=== PATIENT | female | born 1940 | race Caucasian/White ===

== ENCOUNTER 2020-03-24 15:03 | Outpatient (CLI) | payer MEDICARE, BC, SELFPAY ==
[2020-03-24 15:50] LABS: Anion Gap 8.1 mmol/L (3-11); BUN 30 mg/dL (7-18); CO2 26.9 mmol/L (21.0-32.0); CREATININE 1.25 mg/dL (0.55-1.02); Calcium 9.1 mg/dL (8.5-10.1); Chloride 102 mmol/L (98-107); Estimated GFR 41.56 (mL/min/1.73m2); Glucose 137 mg/dL (74-106); Potassium 4.1 mmol/L (3.5-5.1); Sodium 137 mmol/L (136-145)
== END 2020-03-24 15:23 ==
PROVIDERS: PCP Family Medicine; Visit Provider Nurse Practitioner Adult Health
DX: C25.0 Malignant neoplasm of head of pancreas (principal)
CPT/HCPCS: 36415; 80048

== ENCOUNTER 2020-04-04 02:48 | Outpatient (RCR) | payer MEDICARE, BC, SELFPAY ==
[2020-03-21] MEDS: Heparin 500 UNITS/5 ML SYRINGE IV (12:25)
[2020-03-21] MEDS: Normal Saline Flush 10 ML SYR IVP (12:25)
[2020-03-21 12:52] LABS: Abs Immature Grans 0.02 k/cumm (0.0-0.09); Absolute Basophil Count 0.03 k/cumm (0.0-0.2); Absolute Eosinophil Count 0.47 k/cumm (0.0-0.7); Absolute Lymphocyte Count 1.88 k/cumm (1.2-3.4); Absolute Monocyte Count 0.83 k/cumm (0.11-0.7); Absolute Neutrophil Count 5.18 k/cumm (1.2-6.7); Basophils % 0.4; Eosinophils % 5.6; HCT 33.7 % (36.0-46.0); HGB 10.5 g/dL (12.0-15.5); Immature Grans % 0.2 %; Lymphocytes % 22.4; Mean Corp. HGB Concentration 31.2 g/dL (32.0-36.0); Mean Corpuscular Hemoglobin 31.5 pg (27.0-33.0); Mean Corpuscular Volume 101.2 fL (80-95); Mean Platelet Volume 11.1 fL (8.0-11.0); Monocytes % 9.9; Neutrophils % 61.5; Platelet Count 210 x1000/uL (130-400); RBC 3.33 m/cumm (4.00-5.20); RBC Distribution Width 15.4 % (11.7-14.6); White Blood Cell Count 8.41 k/cumm (4.4-10.8)
[2020-03-21 13:07] LABS: ALT 21 U/L (14-59); AST 16 U/L (15-37); Albumin 2.9 g/dL (3.4-5.0); Alkaline Phosphatase 75 U/L (46-116); Anion Gap 5.4 mmol/L (3-11); BUN 34 mg/dL (7-18); Bilirubin, Total 0.3 mg/dL (0.2-1.0); CO2 29.6 mmol/L (21.0-32.0); CREATININE 1.66 mg/dL (0.55-1.02); Calcium 8.9 mg/dL (8.5-10.1); Chloride 101 mmol/L (98-107); Estimated GFR 29.96 (mL/min/1.73m2); Glucose 259 mg/dL (74-106); Potassium 4.7 mmol/L (3.5-5.1); Sodium 136 mmol/L (136-145); Total Protein 7.1 g/dL (6.4-8.2)
[2020-03-24 11:36] LABS: CA 19-9 10 U/mL (<35)
[2020-04-04 12:50] LABS: Abs Immature Grans 0.02 k/cumm (0.0-0.09); Absolute Basophil Count 0.01 k/cumm (0.0-0.2); Absolute Eosinophil Count 0.49 k/cumm (0.0-0.7); Absolute Lymphocyte Count 0.86 k/cumm (1.2-3.4); Absolute Monocyte Count 0.76 k/cumm (0.11-0.7); Absolute Neutrophil Count 4.18 k/cumm (1.2-6.7); Basophils % 0.2; Eosinophils % 7.8; HGB 10.6 g/dL (12.0-15.5); Immature Grans % 0.3 %; Lymphocytes % 13.6; Mean Corp. HGB Concentration 31.2 g/dL (32.0-36.0); Mean Corpuscular Hemoglobin 31.3 pg (27.0-33.0); Mean Corpuscular Volume 100.3 fL (80-95); Mean Platelet Volume 10.8 fL (8.0-11.0); Neutrophils % 66.1; Platelet Count 250 x1000/uL (130-400); RBC 3.39 m/cumm (4.00-5.20); White Blood Cell Count 6.32 k/cumm (4.4-10.8)
[2020-04-04 13:02] LABS: ALT 20 U/L (14-59); AST 18 U/L (15-37); Alkaline Phosphatase 59 U/L (46-116); Anion Gap 5.6 mmol/L (3-11); BUN 25 mg/dL (7-18); Bilirubin, Total 0.3 mg/dL (0.2-1.0); CO2 29.4 mmol/L (21.0-32.0); CREATININE 1.33 mg/dL (0.55-1.02); Calcium 8.5 mg/dL (8.5-10.1); Chloride 96 mmol/L (98-107); Estimated GFR 38.69 (mL/min/1.73m2); Glucose 232 mg/dL (74-106); Potassium 4.3 mmol/L (3.5-5.1); Sodium 131 mmol/L (136-145); Total Protein 6.8 g/dL (6.4-8.2)
[2020-04-04] MEDS: Normal Saline Flush 10 ML SYR IVP (13:20)
== END 2020-04-06 23:59 | disposition home or self-care (01) ==
LOC: INF 02:48
PROVIDERS: PCP Family Medicine; Visit Provider Internal Medicine Hematology & Oncology
DX: C25.0 Malignant neoplasm of head of pancreas (principal); Z45.2 Encounter for adjustment and management of vascular access device
CPT/HCPCS: 36591; 80053; 85025; 86301

== ENCOUNTER 2020-05-02 04:10 | Outpatient (RCR) | payer MEDICARE, BC, SELFPAY ==
[2020-04-11] MEDS: Normal Saline Flush 10 ML SYR IVP (13:05)
[2020-04-11] MEDS: Heparin 500 UNITS/5 ML SYRINGE IV (13:06)
[2020-04-11 13:08] LABS: Abs Immature Grans 0.01 k/cumm (0.0-0.09); Absolute Basophil Count 0.01 k/cumm (0.0-0.2); Absolute Eosinophil Count 0.51 k/cumm (0.0-0.7); Absolute Lymphocyte Count 0.55 k/cumm (1.2-3.4); Absolute Monocyte Count 0.74 k/cumm (0.11-0.7); Absolute Neutrophil Count 3.46 k/cumm (1.2-6.7); Basophils % 0.2; Eosinophils % 9.7; HCT 34.4 % (36.0-46.0); Immature Grans % 0.2 %; Lymphocytes % 10.4; Mean Corpuscular Hemoglobin 31.9 pg (27.0-33.0); Mean Corpuscular Volume 99.7 fL (80-95); Mean Platelet Volume 10.5 fL (8.0-11.0); Neutrophils % 65.5; Platelet Count 189 x1000/uL (130-400); RBC 3.45 m/cumm (4.00-5.20); RBC Distribution Width 14.9 % (11.7-14.6); White Blood Cell Count 5.28 k/cumm (4.4-10.8)
[2020-04-11 13:23] LABS: ALT 34 U/L (14-59); AST 27 U/L (15-37); Albumin 2.9 g/dL (3.4-5.0); Alkaline Phosphatase 69 U/L (46-116); Anion Gap 3.2 mmol/L (3-11); BUN 21 mg/dL (7-18); Bilirubin, Total 0.2 mg/dL (0.2-1.0); CO2 29.8 mmol/L (21.0-32.0); CREATININE 1.17 mg/dL (0.55-1.02); Calcium 8.7 mg/dL (8.5-10.1); Chloride 102 mmol/L (98-107); Estimated GFR 44.85 (mL/min/1.73m2); Glucose 201 mg/dL (74-106); Potassium 4.4 mmol/L (3.5-5.1); Sodium 135 mmol/L (136-145); Total Protein 6.8 g/dL (6.4-8.2)
[2020-04-18] MEDS: Normal Saline Flush 10 ML SYR IVP (13:00)
[2020-04-18] MEDS: Heparin 500 UNITS/5 ML SYRINGE IV (13:00)
[2020-04-18 13:16] LABS: Abs Immature Grans 0.01 k/cumm (0.0-0.09); Absolute Basophil Count 0.01 k/cumm (0.0-0.2); Absolute Eosinophil Count 0.68 k/cumm (0.0-0.7); Absolute Lymphocyte Count 0.41 k/cumm (1.2-3.4); Absolute Monocyte Count 0.88 k/cumm (0.11-0.7); Absolute Neutrophil Count 3.91 k/cumm (1.2-6.7); Basophils % 0.2; Eosinophils % 11.5; HCT 34.4 % (36.0-46.0); HGB 11.1 g/dL (12.0-15.5); Immature Grans % 0.2 %; Lymphocytes % 6.9; Mean Corp. HGB Concentration 32.3 g/dL (32.0-36.0); Mean Corpuscular Hemoglobin 32.3 pg (27.0-33.0); Mean Platelet Volume 10.7 fL (8.0-11.0); Monocytes % 14.9; Neutrophils % 66.3; Platelet Count 154 x1000/uL (130-400); RBC 3.44 m/cumm (4.00-5.20); RBC Distribution Width 15.2 % (11.7-14.6)
[2020-04-18 13:34] LABS: ALT 25 U/L (14-59); AST 20 U/L (15-37); Albumin 2.9 g/dL (3.4-5.0); Alkaline Phosphatase 69 U/L (46-116); Anion Gap 7.1 mmol/L (3-11); BUN 25 mg/dL (7-18); Bilirubin, Total 0.3 mg/dL (0.2-1.0); CO2 28.9 mmol/L (21.0-32.0); CREATININE 1.25 mg/dL (0.55-1.02); Calcium 8.6 mg/dL (8.5-10.1); Chloride 100 mmol/L (98-107); Estimated GFR 41.56 (mL/min/1.73m2); Glucose 182 mg/dL (74-106); Potassium 4.4 mmol/L (3.5-5.1); Sodium 136 mmol/L (136-145); Total Protein 6.8 g/dL (6.4-8.2)
[2020-04-21 11:44] LABS: CA 19-9 12 U/mL (<35)
[2020-04-25] MEDS: Heparin 500 UNITS/5 ML SYRINGE IV (12:04)
[2020-04-25] MEDS: Normal Saline Flush 10 ML SYR IVP (12:04)
[2020-04-25 12:07] LABS: Abs Immature Grans 0.01 k/cumm (0.0-0.09); Absolute Basophil Count 0.01 k/cumm (0.0-0.2); Absolute Eosinophil Count 0.93 k/cumm (0.0-0.7); Absolute Monocyte Count 0.67 k/cumm (0.11-0.7); Absolute Neutrophil Count 2.97 k/cumm (1.2-6.7); Basophils % 0.2; HCT 33.5 % (36.0-46.0); HGB 10.8 g/dL (12.0-15.5); Immature Grans % 0.2 %; Lymphocytes % 6.1; Mean Corp. HGB Concentration 32.2 g/dL (32.0-36.0); Mean Corpuscular Hemoglobin 32.6 pg (27.0-33.0); Mean Corpuscular Volume 101.2 fL (80-95); Mean Platelet Volume 9.8 fL (8.0-11.0); Monocytes % 13.7; Neutrophils % 60.8; Platelet Count 176 x1000/uL (130-400); RBC 3.31 m/cumm (4.00-5.20); RBC Distribution Width 15.4 % (11.7-14.6); White Blood Cell Count 4.89 k/cumm (4.4-10.8)
[2020-04-25 12:25] LABS: ALT 22 U/L (14-59); AST 19 U/L (15-37); Albumin 2.7 g/dL (3.4-5.0); Alkaline Phosphatase 79 U/L (46-116); Anion Gap 6.2 mmol/L (3-11); BUN 21 mg/dL (7-18); Bilirubin, Total 0.2 mg/dL (0.2-1.0); CO2 29.8 mmol/L (21.0-32.0); CREATININE 1.27 mg/dL (0.55-1.02); Calcium 8.5 mg/dL (8.5-10.1); Chloride 100 mmol/L (98-107); Glucose 169 mg/dL (74-106); Potassium 4.5 mmol/L (3.5-5.1); Sodium 136 mmol/L (136-145); Total Protein 6.4 g/dL (6.4-8.2)
[2020-04-28 10:21] LABS: CA 19-9 9 U/mL (<35)
[2020-05-02] MEDS: Heparin 500 UNITS/5 ML SYRINGE IV (12:09)
[2020-05-02] MEDS: Normal Saline Flush 10 ML SYR IVP (12:09)
[2020-05-02 12:21] LABS: Abs Immature Grans 0.01 k/cumm (0.0-0.09); Absolute Basophil Count 0.01 k/cumm (0.0-0.2); Absolute Eosinophil Count 0.71 k/cumm (0.0-0.7); Absolute Lymphocyte Count 0.46 k/cumm (1.2-3.4); Absolute Monocyte Count 0.72 k/cumm (0.11-0.7); Absolute Neutrophil Count 3.32 k/cumm (1.2-6.7); Basophils % 0.2; Eosinophils % 13.6; HCT 33.8 % (36.0-46.0); HGB 10.7 g/dL (12.0-15.5); Immature Grans % 0.2 %; Lymphocytes % 8.8; Mean Corp. HGB Concentration 31.7 g/dL (32.0-36.0); Mean Corpuscular Hemoglobin 31.8 pg (27.0-33.0); Mean Corpuscular Volume 100.6 fL (80-95); Mean Platelet Volume 10.8 fL (8.0-11.0); Monocytes % 13.8; Neutrophils % 63.4; Platelet Count 168 x1000/uL (130-400); RBC 3.36 m/cumm (4.00-5.20); RBC Distribution Width 16.2 % (11.7-14.6); White Blood Cell Count 5.23 k/cumm (4.4-10.8)
[2020-05-02 12:40] LABS: ALT 36 U/L (14-59); AST 29 U/L (15-37); Albumin 2.7 g/dL (3.4-5.0); Alkaline Phosphatase 98 U/L (46-116); Anion Gap 9.3 mmol/L (3-11); BUN 27 mg/dL (7-18); Bilirubin, Total 0.2 mg/dL (0.2-1.0); CO2 25.7 mmol/L (21.0-32.0); CREATININE 1.38 mg/dL (0.55-1.02); Calcium 8.7 mg/dL (8.5-10.1); Chloride 103 mmol/L (98-107); Estimated GFR 37.07 (mL/min/1.73m2); Glucose 222 mg/dL (74-106); Sodium 138 mmol/L (136-145); Total Protein 6.7 g/dL (6.4-8.2)
[2020-05-05 09:58] LABS: CA 19-9 10 U/mL (<35)
== END 2020-05-06 23:59 | disposition home or self-care (01) ==
LOC: INF 04:10
PROVIDERS: PCP Family Medicine; Visit Provider Internal Medicine Hematology & Oncology
DX: C25.0 Malignant neoplasm of head of pancreas (principal); Z45.2 Encounter for adjustment and management of vascular access device
CPT/HCPCS: 36591; 80053; 85025; 86301

== ENCOUNTER 2020-05-23 04:48 | Outpatient (RCR) | payer MEDICARE, SELFPAY | END 2020-06-06 23:59 | disposition home or self-care (01) | LOC: INF 04:48 | PROVIDERS: PCP Family Medicine; Visit Provider Internal Medicine Hematology & Oncology | DX: R69 Illness, unspecified (principal) ==